=== PATIENT | female | born 1995 | race Two or more races ===

== ENCOUNTER 2021-03-30 10:07 | Emergency (ER) | payer OTHER ==
[~2021-03-30] VITALS: Ht 147.3 cm; Wt 54.0 kg
[2021-03-30] MEDS ORDERED: IV NORMAL SALINE 1,000ML 1,000 ML IV ONE (10:30)
[2021-03-30 11:18] LABS: BILIRUBIN,URINE NEG (NEG); CLARITY,URINE CLEAR; COLOR,URINE STRAW; GLUCOSE,URINE NEG (NEG); NITRITE,URINE NEG (NEG); UROBILINOGEN,URINE 0.2 mg/dL (0.2 mg/dL)
[2021-03-30 11:19] LABS: BACTERIA,URINE 0 /HPF (0-FEW); RBC,URINE 0 /HPF (0-2); WBC,URINE 0 /HPF (0-4)
[2021-03-30 11:28] LABS: BASO % 0 % (0-3); EOS % 0 % (0-3); HEMOGLOBIN 13.4 g/dL (12.0-15.5); LYMPH # 0.6 x10^3/uL (1.0-4.8); LYMPH % 5 % (24-48); MEAN CORPUSCULAR HEMOGLOBIN 29 pg (25-35); MEAN CORPUSCULAR HGB CONC 34 g/dL (31-37); MEAN CORPUSCULAR VOLUME 85 fL (79-100); MONO # 0.7 x10^3/uL (0.0-1.1); MONO % 6 % (0-9); NEUT # 10.3 x10^3uL (1.8-7.7); NEUT % 89 % (31-73); PLATELET COUNT 217 x10^3/uL (140-400); RED CELL DISTRIBUTION WIDTH 13.6 % (11.5-14.5); WHITE BLOOD COUNT 11.6 x10^3/uL (4.0-11.0)
--- NOTE | 2021-03-30 11:53 | RAD ---
EXAMINATION: US OB <14 WKS +TV INDICATION: 25 years, Female, pelvic cramping at 7 weeks. COMPARISON: None TECHNIQUE: Transabdominal ultrasound of the pelvis was performed with grayscale, spectral, and color doppler imaging. FINDINGS: Menstrual Status: 02/06/2021 UTERUS: Position: Anteverted Measures: 9.5 x 6.6 x 5.2 cm. Gestational Sac: Regular shape. Yolk sac is present. [place]-Rump Length: 1.0 cm corresponds to 7 weeks and 1 day, expected date delivery is 11/15/2021. Heart Rate: 175 bpm. Expected date of delivery by LMP is 11/13/2021 RIGHT OVARY/ADNEXA: Measures: 2.1 x 2.6 x 2.9 cm Right Ovarian Morphology: Unremarkable Right Ovarian Color And Spectral Doppler Flow: Normal LEFT OVARY/ADNEXA: Measures: 3.0 x 2.9 x 2.1 cm Right Ovarian Morphology: Unremarkable Right Ovarian Color And Spectral Doppler Flow: Normal Fluid: No free fluid IMPRESSION Single live intrauterine with estimated gestational age based on crown-rump length is 7 wee ks and 1 day. Electronically signed by: Renan Traylor MD (03/30/2021 11:50 AM) [facility]
--- NOTE | 2021-03-30 13:03 | PHYS DOC ---
Past History Additional Past Medical Histor: miscarriage @6 weeks Past Surgical History: Appendectomy, Cholecystectomy Additional Past Surgical Histo: D&C Smoking: Non-smoker Alcohol Use: None Drug Use: None General Adult EDM: Chief Complaint: ABDOMINAL PAIN IN HPI: HPI: 25-year-old female G3, P1 presents at approximately 7 weeks gestation with report of pelvic cramping that started today at 0300. Denies fever or chills. Denies vaginal discharge or bleeding. Denies concern for STDs. Denies dysuria or hematuria. Reports history of prior miscarriage at approximately 6 weeks requiring a D&C due to retained products of conception. Patient reports these symptoms concerned her that she might be currently having a miscarriage. Patient reports she is O+ blood type. Review of Systems: Review of Systems: Constitutional: Denies fever or chills Eyes: Denies redness or eye pain HENT: Denies nasal congestion or sore throat Respiratory: Denies cough or shortness of breath Cardiovascular: Denies chest pain or palpitations GI: Denies abdominal pain, nausea, or vomiting /[employer]: Denies dysuria or hematuria; reports pelvic pain in ; denies vaginal discharge or bleeding Musculoskeletal: Denies back pain or joint pain Integument: Denies rash or skin lesions Neurologic: Denies headache, focal weakness or sensory changes Complete systems were reviewed and found to be within normal limits, except as documented in this note. Current Medications: Current Meds: Current Medications Medications (Trade) Dose Ordered Sig/Maxi Start Time Stop Time Status Last Admin Dose Admin Sodium Chloride 1,000 ml @ 1,000 mls/hr 1X ONCE 03/30/21 10:30 03/30/21 11:29 DC 03/30/21 10:50 1,000 MLS/HR Allergies: Allergies: Allergies Coded Allergies Type Severity Reaction Last Updated Verified No Known Drug Allergies 03/30/21 No Physical Exam: PE: Constitutional: Well developed, well nourished, no acute distress, non-toxic appearance HENT: Normocephalic, atraumatic Eyes: Conjunctiva normal, no discharge Neck: Normal range of motion, supple Lungs & Thorax: No respiratory distress, equal chest rise and fall Abdomen: Soft, no tenderness, no guarding/rebound tenderness/distention Skin: Warm, dry, no erythema, no rash Extremities: No tenderness, ROM intact, no edema Neurologic: Alert and oriented X 3, no focal deficits noted Psychologic: Affect normal, judgment normal Current Patient Data: Labs: Laboratory Tests Test 03/30/21 10:15 03/30/21 10:42 Urine Collection Type Void Urine Color Straw Urine Clarity Clear Urine pH 7.0 Urine Specific [place] 1.020 Urine Protein Neg (NEG-TRACE) Urine Glucose (UA) Neg mg/dL (NEG) Urine Ketones (Stick) Neg mg/dL (NEG) Urine Blood Neg (NEG) Urine Nitrite Neg (NEG) Urine Bilirubin Neg (NEG) Urine Urobilinogen Dipstick 0.2 mg/dL (0.2 mg/dL) Urine Leukocyte Esterase Neg (NEG) Urine RBC 0 /HPF (0-2) Urine WBC 0 /HPF (0-4) Urine Bacteria 0 /HPF (0-FEW) White Blood Count 11.6 x10^3/uL (4.0-11.0) H Red Blood Count 4.60 x10^6/uL (3.50-5.40) Hemoglobin 13.4 g/dL (12.0-15.5) Hematocrit 39.0 % (36.0-47.0) Mean Corpuscular Volume 85 fL (79-100) Mean Corpuscular Hemoglobin 29 pg (25-35) Mean Corpuscular Hemoglobin Concent 34 g/dL (31-37) Red Cell Distribution Width 13.6 % (11.5-14.5) Platelet Count 217 x10^3/uL (140-400) Neutrophils (%) (Auto) 89 % (31-73) H Lymphocytes (%) (Auto) 5 % (24-48) L Monocytes (%) (Auto) 6 % (0-9) Eosinophils (%) (Auto) 0 % (0-3) Basophils (%) (Auto) 0 % (0-3) Neutrophils # (Auto) 10.3 x10^3uL (1.8-7.7) H Lymphocytes # (Auto) 0.6 x10^3/uL (1.0-4.8) L Monocytes # (Auto) 0.7 x10^3/uL (0.0-1.1) Eosinophils # (Auto) 0.0 x10^3/uL (0.0-0.7) Basophils # (Auto) 0.0 x10^3/uL (0.0-0.2) Vital Signs: Vital Signs Date Time Temp Pulse Resp B/P (MAP) Pulse Ox O2 Delivery O2 Flow Rate FiO2 03/30/21 10:10 98.0 105 18 105/67 (80) 98 EKG: EKG: [] Radiology/Procedures: Radiology/Procedures: PROCEDURE: OB <14 WKS EXAMINATION: US OB <14 WKS +TV INDICATION: 25 years, Female, pelvic cramping at 7 weeks. COMPARISON: None TECHNIQUE: Transabdominal ultrasound of the pelvis was performed with grayscale, spectral, and color doppler imaging. FINDINGS: Menstrual Status: 02/06/2021 UTERUS: Position: Anteverted Measures: 9.5 x 6.6 x 5.2 cm. Gestational Sac: Regular shape. Yolk sac is present. [place]-Rump Length: 1.0 cm corresponds to 7 weeks and 1 day, expected date delivery is 11/15/2021. Heart Rate: 175 bpm. Expected date of delivery by LMP is 11/13/2021 RIGHT OVARY/ADNEXA: Measures: 2.1 x 2.6 x 2.9 cm Right Ovarian Morphology: Unremarkable Right Ovarian Color And Spectral Doppler Flow: Normal LEFT OVARY/ADNEXA: Measures: 3.0 x 2.9 x 2.1 cm Right Ovarian Morphology: Unremarkable Right Ovarian Color And Spectral Doppler Flow: Normal Fluid: No free fluid IMPRESSION Single live intrauterine with estimated gestational age based on crown-rump length is 7 weeks and 1 day. Electronically signed by: Renan Traylor MD (03/30/2021 11:50 AM) [facility] Heart Score: C/O Chest Pain: N/A Course & Med Decision Making: Course & Med Decision Making Pertinent Labs and Imaging studies reviewed. (See chart for details) Patient presents at approximately 7 weeks gestation with report of pelvic cramping that started this morning. Denies vaginal bleeding or discharge. Denies trauma. Labs obtained and posted to chart. Blood type O+. Ultrasound with viable single intrauterine at 7 weeks. IV fluid hydration given. Patient stable for discharge with outpatient follow-up with PCP/OB-[employer]CRA[employer]. Discussed findings and plan with patient and significant other, who acknowledge understanding and agreement. Edmundo Disclaimer: Edmundo Disclaimer: This electronic medical record was generated, in whole or in part, using a voice recognition dictation system. Departure Departure: Impression: Primary Impression: Pelvic pain during Disposition: HOME / SELF CARE / HOMELESS Condition: STABLE Referrals: PRIMO KNIGHT DO (PCP) Patient Instructions: Abdominal Pain During , [id number], - First Trimester, [id number] Additional Instructions: Increase fluid hydration. May take over the counter Tylenol as needed for pain or discomfort. Follow closely with your OB-[employer]IRCRA[employer] [facility]ER for further evaluation and treatment. GABBY SHULTZ DO Mar 30, 2021 13:03
[2021-03-30 13:13] LABS: BUN ISTAT < 3 mg/dL (8-26); POTASSIUM ISTAT 3.7 mmol/L (3.5-5.0); SODIUM ISTAT 137 mmol/L (135-145)
[2021-03-30 13:14] LABS: GLUCOSE ISTAT 85 mg/dL (60-99); HEMATOCRIT ISTAT 37 %; HEMOGLOBIN ISTAT 12.6 gm/dL
[2021-03-30 13:30] VITALS: BP 106/48
[2021-03-30 17:30] LABS: ALBUMIN 3.8 g/dL (3.4-5.0); ALBUMIN/GLOBULIN RATIO 1.1 (1.0-1.7); CALCIUM 8.9 mg/dL (8.5-10.1); TOTAL PROTEIN 7.2 g/dL (6.4-8.2)
[2021-03-30 17:31] LABS: CREATININE 0.6 mg/dL (0.6-1.0); GFR 123.9; MAGNESIUM 1.6 mg/dL (1.8-2.4); POTASSIUM 3.5 mmol/L (3.5-5.1); TOTAL BILIRUBIN 0.4 mg/dL (0.2-1.0)
== END 2021-03-30 13:33 | disposition home or self-care (01) ==
LOC: ER 10:07
DX: O26.891 Other specified pregnancy related conditions, first trimester (principal); R10.2 Pelvic and perineal pain; Z3A.01 Less than 8 weeks gestation of pregnancy; Z90.49 Acquired absence of other specified parts of digestive tract; Z90.89 Acquired absence of other organs
CPT/HCPCS: 36415; 76801; 80047; 80053; 81001; 83735; 84702; 85025; 86900; 86901; 96360; 99284; J7030

== ENCOUNTER 2021-11-11 14:56 | Emergency (ER) | payer OTHER ==
[~2021-11-11] VITALS: Ht 149.9 cm; Wt 68.0 kg
--- NOTE | 2021-11-11 15:19 | PHYS DOC ---
Past History Additional Past Medical Histor: miscarriage @6 weeks Past Surgical History: Appendectomy, Cholecystectomy Additional Past Surgical Histo: D&C Smoking: Non-smoker Alcohol Use: None Drug Use: None General Adult EDM: Chief Complaint: FEVER HPI: HPI: 26-year-old female presents with fever and chills. Patient does not have any other symptoms. This is day 2 of her fever. It is amenable to Tylenol but then goes back up when it wears off. Her highest reading at home was 104. She denies cough, congestion, sore throat, dysuria, urinary frequency. No one else in her household is sick. She was vaccinated against COVID-19. She has not had COVID-19 as far she knows. Review of Systems: Review of Systems: Constitutional: Fever and chills Eyes: Denies change in visual acuity HENT: Denies nasal congestion or sore throat Respiratory: Denies cough or shortness of breath Cardiovascular: Denies chest pain or edema GI: Denies abdominal pain, nausea, vomiting, bloody stools or diarrhea : Denies dysuria Musculoskeletal: Denies back pain or joint pain Integument: Denies rash Neurologic: Denies headache, focal weakness or sensory changes Endocrine: Denies polyuria or polydipsia Lymphatic: Denies swollen glands Psychiatric: Denies depression or anxiety Allergies: Allergies: Allergies Coded Allergies Type Severity Reaction Last Updated Verified No Known Drug Allergies 03/30/21 No Physical Exam: PE: Constitutional: Well developed, well nourished, no acute distress, non-toxic appearance. [] HENT: Normocephalic, atraumatic, bilateral external ears normal, oropharynx moist, no oral exudates, nose normal. [] Eyes: PERRLA, EOMI, conjunctiva normal, no discharge. [] Neck: Normal range of motion, no tenderness, supple, no stridor. [] Cardiovascular: Heart rate regular rhythm, no murmur [] Lungs & Thorax: Bilateral breath sounds clear to auscultation [] Abdomen: Bowel sounds normal, soft, no tenderness, no masses, no pulsatile masses. [] Skin: Warm, dry, no erythema, no rash. [] Back: No tenderness, no CVA tenderness. [] Extremities: No tenderness, no cyanosis, no clubbing, ROM intact, no edema. [] Neurologic: Alert and oriented X 3, normal motor function, normal sensory function, no focal deficits noted. [] Psychologic: Affect normal, judgement normal, mood normal. [] EKG: EKG: [] Radiology/Procedures: Radiology/Procedures: [] Heart Score: C/O Chest Pain: N/A Risk Factors: Risk Factors: DM, Current or recent (<one month) smoker, HTN, HLP, family history of CAD, obesity. Risk Scores: Score 0 - 3: 2.5% MACE over next 6 weeks - Discharge Home Score 4 - 6: 20.3% MACE over next 6 weeks - Admit for Clinical Observation Score 7 - 10: 72.7% MACE over next 6 weeks - Early Invasive Strategies Course & Med Decision Making: Course & Med Decision Making Pertinent Labs and Imaging studies reviewed. (See chart for details) The patient's urinalysis is significant for urinary tract infection. I will treat her with Keflex for 5 days. She is stable for discharge at this time. [] Dragon Disclaimer: Edmundo Disclaimer: This electronic medical record was generated, in whole or in part, using a voice recognition dictation system. Departure Departure: Impression: Primary Impression: UTI (urinary tract infection) Qualified Codes: N30.01 - Acute cystitis with hematuria Disposition: HOME / SELF CARE / HOMELESS Condition: STABLE Referrals: PRIMO KNIGHT DO (PCP) Patient Instructions: Urinary Tract Infection, [id number] HANNAH SESAY DO Nov 11, 2021 15:19
[2021-11-11 16:04] LABS: INFLUENZA A PATIENT NEGATIVE (NEGATIVE); INFLUENZA B PATIENT NEGATIVE (NEGATIVE)
[2021-11-11 17:00] VITALS: BP 112/82
[2021-11-11 17:08] LABS: BILIRUBIN,URINE SMALL (NEG); CLARITY,URINE CLOUDY; COLOR,URINE YELLOW; GLUCOSE,URINE NEG (NEG); NITRITE,URINE NEG (NEG); UROBILINOGEN,URINE 0.2 mg/dL (0.2 mg/dL)
[2021-11-11 17:09] LABS: BACTERIA,URINE MOD /HPF (0-FEW); SQUAMOUS EPITHELIAL CELL,UR MANY /LPF; WBC,URINE >40 /HPF (0-4)
[2021-11-11] MEDS ORDERED: CEPH500T PO (17:30)
[2021-11-11] MEDS ORDERED: CEPHALEXIN 250 MG CAPSULE PO ONE (17:30)
== END 2021-11-11 17:43 | disposition home or self-care (01) ==
LOC: ER 14:56
DX: N30.01 Acute cystitis with hematuria (principal); Z20.822 Contact with and (suspected) exposure to COVID-19; Z90.49 Acquired absence of other specified parts of digestive tract; Z90.89 Acquired absence of other organs
CPT/HCPCS: 81001; 87086; 87428; 99283